=== PATIENT | male | born 1985 | race Caucasian/White ===

== ENCOUNTER 2016-12-23 13:03 | Emergency (ER) | payer MEDICAID ==
[2016-12-23 13:20] VITALS: BP 156/66
[2016-12-23] MEDS ORDERED: Acetaminophen 500 MG Tab PO ONE (13:43)
--- NOTE | 2016-12-23 13:58 | EDM.PDOC ---
ED HPI GENERAL MEDICAL PROBLEM - General Chief Complaint: Lower Extremity Injury/Pain Stated Complaint: FELL AND INJURED RT ANKLE AND RT HAND Time Seen by Provider: 12/23/16 13:25 Source of Information: Reports: Patient History Limitations: Reports: No Limitations - History of Present Illness INITIAL COMMENTS - FREE TEXT/NARRATIVE: Patient presents today with complaints of right ankle pain. Aaron was walking his dog today at 1300, tripped when he stepped in a hole. He reports hearing a pop and having acute pain. He also reports difficulty with weight bearing. Onset: Today, Sudden Location: Reports: Lower Extremity, Right Quality: Reports: Ache, Throbbing Improves with: Reports: None Worsens with: Reports: Movement right ankle Pain Score (Numeric/FACES): 4 - Related Data Allergies Allergy/AdvReac Type Severity Reaction Status Date / Time ibuprofen Allergy Airway Verified 06/21/15 11:27 Tightness latex Allergy Rash Verified 06/21/15 11:27 metoprolol Allergy Hallucinati Verified 12/23/16 13:23 ons mushroom Allergy Rash Verified 06/21/15 11:27 dragon fruit Allergy Hives Uncoded 04/10/16 21:13 Home Meds: Home Meds Albuterol Sulfate [Ventolin Hfa] 18 gm IH ASDIRECTED PRN 05/02/15 [History] Aspirin [Low Dose Aspirin EC] 81 mg PO BEDTIME 05/02/15 [History] Lisinopril [Zestril] 10 mg PO DAILY 05/02/15 [History] amLODIPine [Norvasc] 5 mg PO DAILY 05/02/15 [History] Gabapentin [Gabapentin] 300 mg pe PO TID 11/21/15 [History] FLUoxetine [PROzac] 40 mg PO DAILY 12/23/16 [History] Ranitidine [Zantac] 300 mg PO DAILY 12/23/16 [History] metFORMIN [Glucophage] 500 mg PO BIDMEALS 12/23/16 [History] traZODone 50 mg PO DAILY 12/23/16 [History] Past Medical History Other HEENT History: Bilateral eustachian tubes Cardiovascular History: Reports: Hypertension Respiratory History: Reports: Asthma, Sleep Apnea, SOB Gastrointestinal History: Reports: GERD Musculoskeletal History: Reports: Back Pain, Chronic, Fracture Psychiatric History: Reports: Anxiety, Depression Endocrine/Metabolic History: Reports: Obesity/BMI 30+ Hematologic History: Reports: Iron Deficiency Social & Family History - Family History Endocrine/Metabolic: Reports: Diabetes, type II - Tobacco Use Smoking Status *Q: Never Smoker Second Hand Smoke Exposure: No - Caffeine Use Caffeine Use: Reports: Soda - Recreational Drug Use Recreational Drug Use: No Review of Systems - Review of Systems Review Of Systems: See Below Constitutional: Reports: No Symptoms Respiratory: Denies: Shortness of Breath, Wheezing, Cough, Sputum Cardiovascular: Denies: Chest Pain, Edema, Lightheadedness, Palpitations, Syncope Musculoskeletal: Reports: Other (Right ankle pain, tenderness) Skin: Reports: Other (Abrasion to right palm. ) Neurological: Denies: Confusion, Dizziness, Headache, Numbness, Tingling, Weakness Psychiatric: Reports: No Symptoms ED EXAM, GENERAL - Physical Exam Exam: See Below Free Text/Narrative:: Patient presents today status post fall from stepping in hole with right ankle. Difficulty bearing weight. Exam Limited By: No Limitations General Appearance: Alert, WD/WN Eye Exam: Bilateral Eye: EOMI, PERRL Ears: Normal External Exam, Normal Canal, Hearing Grossly Normal, Normal TMs Ear Exam: Bilateral Ear: Auricle Normal, Canal Normal, TM normal Nose: Normal Inspection, Normal Mucosa, No Blood Throat/Mouth: Normal Inspection, Normal Lips, Normal Teeth, Normal Gums, Normal Oropharynx, Normal Voice, No Airway Compromise Head: Atraumatic, Normocephalic Neck: Normal Inspection, Supple, Non-Tender, Full Range of Motion Respiratory/Chest: No Respiratory Distress, Lungs Clear, Normal Breath Sounds, No Accessory Muscle Use, Chest Non-Tender Cardiovascular: Normal Peripheral Pulses, Regular Rate, Rhythm, No Edema, No Gallop, No Murmur, No Rub Peripheral Pulses: 2+: Radial (L), Radial (R), Dorsalis Pedis (L), Dorsalis Pedis (R) GI/Abdominal: Normal Bowel Sounds, Soft, Non-Tender, No Organomegaly, No Distention, No Abnormal Bruit, No Mass Extremities: Normal Inspection, Normal Range of Motion, Non-Tender, No Pedal Edema, Normal Capillary Refill Neurological: Alert, Oriented, CN II-XII Intact, Normal Cognition, Normal Gait, Normal Reflexes, No Motor/Sensory Deficits Psychiatric: Normal Affect, Normal Mood Skin Exam: Warm, Dry, Other Lymphatic: No Adenopathy Course - Vital Signs Last Recorded V/S: Last Vital Signs Temp 36.7 C 12/23/16 13:19 Pulse 101 H 12/23/16 13:19 Resp 20 12/23/16 13:19 BP 156/66 H 12/23/16 13:19 Pulse Ox 96 12/23/16 13:19 - Orders/Labs/Meds Meds: Medications Discontinued Medications Generic Name Dose Route Start Last Admin Trade Name Oh PRN Reason Stop Dose Admin Acetaminophen 1,000 mg 12/23/16 13:43 12/23/16 13:57 Tylenol Extra Strength PO 12/23/16 13:44 1,000 mg ONETIME ONE Administration Aspirin 325 mg 12/23/16 15:01 Ecotrin PO 12/23/16 15:02 ONETIME ONE Bacitracin 1 dose 12/23/16 15:01 Bacitracin Oint 1 Gm TOP 12/23/16 15:02 ONETIME ONE - Radiology Interpretation Free Text/Narrative:: X-ray reviewed with radiologist. Distal fibula spiral fracture. Dr. Denise Martini notified of patient status. Posterior splint applied. Patient will take Aspirin 325mg PO daily. He will be provided hydrocodone for pain. Follow up with Dr. Martini this . Departure - Departure Time of Disposition: 14:59 Disposition: Home, Self-Care 01 Condition: Fair Clinical Impression: Fracture of distal end of fibula, Fracture of fibula, Morbid obesity - Discharge Information Referrals: Satinder Sadler PA-C [Primary Care Provider] - Forms: ED Department Discharge Additional Instructions: You have a spiral fracture of the right distal fibula bone in your right ankle. It is recommended for you to not bear any weight on your right foot. Use of a scooter or wheelchair are good options. Take an aspirin 325mg PO daily to prevent blood clots. You may take acetaminophen 650 mg PO every 4 to 6 hours for pain. You can take hydrocodone 5/325mg one tablet by mouth every 6 hours for break- through pain (#12 provided). Your pain will be less with no weight bearing. Use of elevating the extremity, rest, ice (on for 20 minutes, off for 20 minutes as frequent as you can) will help your pain. Keep splint on and in place. Follow up with Dr. Denise Martini this . Return to ER or report to clinic for worsening of pain, issues or concerns. - Assessment/Plan Assessment:: Distal spiral fracture of right tibia, non-displaced. Posterior splint applied. Follow up with ortho. Morbid obesity Plan: Recommend no weight bearing of right foot/ankle. Use of a scooter or wheelchair are good options. Take an aspirin 325mg PO daily to prevent blood clots. Take acetaminophen 650 mg PO every 4 to 6 hours for pain. Hydrocodone 5/325mg one tablet by mouth every 6 hours for break-through pain (# 12 provided per written script). Patient advised that pain will be less with no weight bearing. Use of elevating the extremity, rest, ice. Keep splint on and in place. Follow up with Dr. Denise Martini this . Return to ER or report to clinic for worsening of pain, issues or concerns. Patient given acetaminophen, aspirin in ER. Splint length of 2 separate 5 x 66cm due to size of lower leg with segundo wrap. Not able to use cam walker boot.
--- NOTE | 2016-12-23 14:09 | CR ---
Soft tissue swelling. Distal tibia is intact. Slight irregularity at the expected cortex of the dist al fibula on the lateral view only. Cannot exclude a fracture at this location. Consider radiographi c or CT follow-up.
[2016-12-23] MEDS ORDERED: Aspirin 325 MG Tab.EC PO ONE (15:01)
[2016-12-23] MEDS ORDERED: Bacitracin Oint 1 GM U/D Packet TOP ONE (15:01)
== END 2016-12-23 15:20 | disposition home or self-care (01) ==
LOC: JP.ED 13:03
DX: S82.831A Other fracture of upper and lower end of right fibula, initial encounter for closed fracture (principal); I10 Essential (primary) hypertension; J45.909 Unspecified asthma, uncomplicated; G47.30 Sleep apnea, unspecified; F41.9 Anxiety disorder, unspecified; F32.9 Major depressive disorder, single episode, unspecified; E66.01 Morbid (severe) obesity due to excess calories; Z68.45 Body mass index [BMI] 70 or greater, adult; Z79.82 Long term (current) use of aspirin; Z79.899 Other long term (current) drug therapy; Z88.6 Allergy status to analgesic agent; Z88.8 Allergy status to other drugs, medicaments and biological substances; Z91.040 Latex allergy status; Z91.018 Allergy to other foods; W18.42XA Slipping, tripping and stumbling without falling due to stepping into hole or opening, initial encounter; Y93.K1 Activity, walking an animal
CPT/HCPCS: 29515; 73610; 99284; A9270

== ENCOUNTER 2019-02-04 20:52 | Emergency (ER) | payer MEDICAID ==
[2019-02-04 21:08] VITALS: BP 137/88; PULSE 70
[2019-02-04] MEDS ORDERED: Triamcinolone Acetonide 40 MG/ML 1 ML MDV INJECT ONE (22:09)
--- NOTE | 2019-02-04 22:15 | EDM.PDOC ---
ED HPI GENERAL MEDICAL PROBLEM - General Chief Complaint: Skin Complaint Stated Complaint: RASH Time Seen by Provider: 02/04/19 22:10 Source of Information: Reports: Patient History Limitations: Reports: No Limitations - History of Present Illness INITIAL COMMENTS - FREE TEXT/NARRATIVE: pt arrived with a rash on both hands. this is very itch. This does have small vesicles present. He does have some lesions on his cheeks. He has not been in the garden or weeds. He does have a dog. he has been using benadryl and this has not been controlling the itching. Onset: Today, Sudden Duration: Hour(s): Location: Reports: Face Associated Symptoms: Reports: No Other Symptoms - Related Data Allergies Allergy/AdvReac Type Severity Reaction Status Date / Time ibuprofen Allergy Airway Verified 02/04/19 21:11 Tightness latex Allergy Rash Verified 02/04/19 21:11 metoprolol Allergy Hallucinati Verified 02/04/19 21:11 ons mushroom Allergy Rash Verified 02/04/19 21:11 dragon fruit Allergy Hives Uncoded 02/04/19 21:11 Home Meds: Home Meds Albuterol Sulfate [Ventolin Hfa] 18 gm IH ASDIRECTED PRN 05/02/15 [History] Lisinopril [Zestril] 10 mg PO DAILY 05/02/15 [History] FLUoxetine [PROzac] 80 mg PO DAILY 12/23/16 [History] traZODone 75 mg PO BEDTIME PRN 12/23/16 [History] Chromium Amino Acid Chelate [Chromium] 400 mcg PO DAILY 12/26/16 [History] Polyethylene Glycol 3350 [MiraLAX] 17 gram PO DAILY PRN 12/26/16 [History] Albuterol [Ventolin HFA] 2 puff PO Q4H 01/15/18 [History] Omeprazole 40 mg PO DAILY 01/15/18 [History] amLODIPine [Norvasc] 5 mg PO DAILY 01/15/18 [History] Past Medical History HEENT History: Reports: Impaired Vision Other HEENT History: Bilateral eustachian tubes Cardiovascular History: Reports: Hypertension Respiratory History: Reports: Asthma, Sleep Apnea, SOB Gastrointestinal History: Reports: GERD Musculoskeletal History: Reports: Back Pain, Chronic, Fracture, Other (See Below ) Other Musculoskeletal History: R ankle Psychiatric History: Reports: Anxiety, Depression Endocrine/Metabolic History: Reports: Obesity/BMI 30+, Other (See Below) Other Endocrine/Metabolic History: thyroid problems years ago Hematologic History: Reports: Iron Deficiency, Other (See Below) Other Hematologic History: low testosterone - Past Surgical History Head Surgeries/Procedures: Reports: None HEENT Surgical History: Reports: None Cardiovascular Surgical History: Reports: None Respiratory Surgical History: Reports: None GI Surgical History: Reports: None Musculoskeletal Surgical History: Reports: None Dermatological Surgical History: Reports: None Social & Family History - Family History Endocrine/Metabolic: Reports: Diabetes, type II Oncologic: Reports: Lung - Tobacco Use Smoking Status *Q: Never Smoker Second Hand Smoke Exposure: No - Caffeine Use Caffeine Use: Reports: None - Recreational Drug Use Recreational Drug Use: No ED ROS GENERAL - Review of Systems Review Of Systems: See Below Constitutional: Reports: No Symptoms HEENT: Reports: No Symptoms Respiratory: Reports: No Symptoms Cardiovascular: Reports: No Symptoms Endocrine: Reports: No Symptoms GI/Abdominal: Reports: No Symptoms : Reports: No Symptoms Musculoskeletal: Reports: No Symptoms Skin: Reports: Pruritis, Rash, Other (pt has marked itching present. ) Neurological: Reports: No Symptoms ED EXAM, SKIN/RASH Exam: See Below Text/Narrative:: pt arrived with a rash on both hands. This is very itchy and is vesicular. Exam Limited By: No Limitations General Appearance: Alert, Anxious, Moderate Distress Ears: Normal TMs Nose: Normal Inspection Throat/Mouth: Normal Inspection Head: Atraumatic Neck: Normal Inspection Respiratory/Chest: No Respiratory Distress Cardiovascular: Regular Rate, Rhythm GI/Abdominal: Soft, Non-Tender (Male) Exam: Deferred Rectal (Males) Exam: Normal Exam Back Exam: Normal Inspection Extremities: Other ( rash on both hands and on the face) Neurological: Alert, Oriented, Normal Cognition Skin: Rash Location, Skin: Upper Extremity, Right, Upper Extremity, Left Characteristics: Vesicular Course - Vital Signs Last Recorded V/S: Last Vital Signs Temp 35.8 C 02/04/19 21:14 Pulse 70 02/04/19 21:14 Resp 20 02/04/19 21:14 BP 137/88 02/04/19 21:14 Pulse Ox 98 02/04/19 21:14 - Orders/Labs/Meds Orders: Active Orders 24 hr Category Date Time Status Triamcinolone Acetonide [Kenalog-40] Med 02/04/19 22:09 Once 60 mg INJECT ASDIRECTED ONE - Re-Assessments/Exams Free Text/Narrative Re-Assessment/Exam: 02/04/19 22:15 pt was given kenalog 60 mg im and will be given kenalog cream for the hands. Departure - Departure Time of Disposition: 22:16 Disposition: Home, Self-Care 01 Condition: Fair Clinical Impression: Rash - Discharge Information Referrals: PCP,None [Primary Care Provider] - Care Plan Goals: benadryl 50 mg q6h as needed for the itching. Use the amoxicillin for 1 week. kenalog cream .1 % -- apply to the rash tid-- at nite put the cream on and then put rubber gloves over it. - My Orders Last 24 Hours: My Active Orders 02/04/19 22:09 Triamcinolone Acetonide [Kenalog-40] 60 mg INJECT ASDIRECTED ONE - Assessment/Plan Last 24 Hours: My Active Orders 02/04/19 22:09 Triamcinolone Acetonide [Kenalog-40] 60 mg INJECT ASDIRECTED ONE
== END 2019-02-04 22:33 | disposition home or self-care (01) ==
LOC: JP.ED 20:52
DX: R21 Rash and other nonspecific skin eruption (principal); I10 Essential (primary) hypertension; J45.909 Unspecified asthma, uncomplicated; K21.9 Gastro-esophageal reflux disease without esophagitis; F41.9 Anxiety disorder, unspecified; F32.9 Major depressive disorder, single episode, unspecified; E66.9 Obesity, unspecified; Z68.44 Body mass index [BMI] 60.0-69.9, adult; Z88.8 Allergy status to other drugs, medicaments and biological substances; Z91.040 Latex allergy status; Z91.018 Allergy to other foods; Z79.899 Other long term (current) drug therapy
CPT/HCPCS: 96372; 99282; J3301

== ENCOUNTER 2023-10-08 00:39 | Emergency (ER) | payer MEDICAID ==
[2023-10-08 01:10] LABS: BASOPHILS ABSOLUTE AUTO 0.04 K/uL (0.00-0.10); BASOPHILS PERCENT AUTO 0.3 % (0.1-1.3); EOSINOPHILS ABSOLUTE AUTO 0.23 K/uL (0.00-0.40); EOSINOPHILS PERCENT AUTO 1.8 % (0.0-5.4); HEMATOCRIT 41.9 % (38.4-49.7); HEMOGLOBIN 14.3 g/dL (12.9-16.9); IMMATURE GRAN ABSOLUTE AUTO 0.04 K/uL (0.00-0.23); IMMATURE GRAN PERCENT AUTO 0.3 % (0.0-0.7); LYMPHOCYTES PERCENT AUTO 23.7 % (11.4-47.7); MEAN CORPUSCULAR HEMOGLOBIN 26.3 pg (31.6-35.5); MEAN CORPUSCULAR HGB CONC 34.1 g/dL (31.6-35.5); MONOCYTES ABSOLUTE AUTO 1.23 K/uL (0.20-0.90); MONOCYTES PERCENT AUTO 9.4 % (3.3-12.6); NEUTROPHILS ABSOLUTE AUTO 8.44 K/uL (1.0-7.6); NEUTROPHILS PERCENT AUTO 64.5 % (40.0-78.1); PLATELET COUNT,PLT 263 K/uL (130-375); RED BLOOD CELL COUNT 5.44 M/uL (4.14-5.76); WHITE BLOOD CELL COUNT,WBC 13.1 K/uL (3.2-11.0)
[2023-10-08 01:34] LABS: A/G RATIO 0.8 (1.2-2.2); ALANINE AMINOTRANSFERASE,ALT 33 U/L (12-78); ALBUMIN 3.5 g/dL (3.4-5.0); ALKALINE PHOSPHATASE 90 U/L (46-116); ASPARTATE AMNIOTRANSFERASE,AST 32 U/L (15-37); BILIRUBIN TOTAL 0.5 mg/dL (0.2-1.0); BLOOD UREA NITROGEN,BUN 20 mg/dL (7-18); CARBON DIOXIDE,CO2 29 mmol/L (21-32); CHLORIDE,CL 98 mmol/L (100-108); CREATININE 1.1 mg/dL (0.8-1.3); EST CRCL DRUG DOSING (CG) 95.86 mL/min; ESTIMATED GFR 89 mL/min (>60); GLUCOSE RANDOM 118 mg/dL (74-106); POTASSIUM,K 4.2 mmol/L (3.6-5.2); PROTEIN TOTAL,TP 7.8 g/dL (6.4-8.2); SODIUM,NA 135 mmol/L (140-148)
[2023-10-08 01:35] LABS: ANION GAP 12.2 mmol/L (5.0-14.0); TROPONIN I HIGH SENSITIVITY < 4.0 pg/mL (<=60.3)
[2023-10-08 01:42] VITALS: BP 118/79; PULSE 89
== END 2023-10-08 02:21 | disposition home or self-care (01) ==
LOC: JP.ED 00:39
DX: R07.89 Other chest pain (principal); F41.9 Anxiety disorder, unspecified; E66.01 Morbid (severe) obesity due to excess calories; Z68.44 Body mass index [BMI] 60.0-69.9, adult; I10 Essential (primary) hypertension; K21.9 Gastro-esophageal reflux disease without esophagitis; Z88.6 Allergy status to analgesic agent; Z91.040 Latex allergy status; Z91.018 Allergy to other foods; Z88.8 Allergy status to other drugs, medicaments and biological substances; Z79.51 Long term (current) use of inhaled steroids; Z79.899 Other long term (current) drug therapy
CPT/HCPCS: 36415; 80053; 84484; 85025; 93005; 99285

== ENCOUNTER 2024-01-11 20:58 | Emergency (ER) | payer MEDICAID ==
[2024-01-11 22:01] LABS: BASOPHILS ABSOLUTE AUTO 0.03 K/uL (0.00-0.10); BASOPHILS PERCENT AUTO 0.3 % (0.1-1.3); EOSINOPHILS ABSOLUTE AUTO 0.24 K/uL (0.00-0.40); HEMATOCRIT 38.2 % (38.4-49.7); HEMOGLOBIN 13.1 g/dL (12.9-16.9); IMMATURE GRAN ABSOLUTE AUTO 0.04 K/uL (0.00-0.23); IMMATURE GRAN PERCENT AUTO 0.3 % (0.0-0.7); LYMPHOCYTES ABSOLUTE AUTO 2.66 K/uL (0.8-3.3); LYMPHOCYTES PERCENT AUTO 22.6 % (11.4-47.7); MEAN CORPUSCULAR HEMOGLOBIN 27.8 pg (31.6-35.5); MEAN CORPUSCULAR HGB CONC 34.3 g/dL (31.6-35.5); MEAN CORPUSCULAR VOLUME 81.1 fL (81.4-99.0); MONOCYTES ABSOLUTE AUTO 1.09 K/uL (0.20-0.90); MONOCYTES PERCENT AUTO 9.3 % (3.3-12.6); NEUTROPHILS ABSOLUTE AUTO 7.72 K/uL (1.0-7.6); NEUTROPHILS PERCENT AUTO 65.5 % (40.0-78.1); PLATELET COUNT,PLT 247 K/uL (130-375); RED BLOOD CELL COUNT 4.71 M/uL (4.14-5.76); WHITE BLOOD CELL COUNT,WBC 11.8 K/uL (3.2-11.0)
[2024-01-11 22:25] LABS: ALANINE AMINOTRANSFERASE,ALT 23 U/L (12-78); ALBUMIN 3.5 g/dL (3.4-5.0); ALKALINE PHOSPHATASE 79 U/L (46-116); ANION GAP 10.3 mmol/L (5.0-14.0); ASPARTATE AMNIOTRANSFERASE,AST 16 U/L (15-37); BILIRUBIN TOTAL 0.4 mg/dL (0.2-1.0); BLOOD UREA NITROGEN,BUN 26 mg/dL (7-18); CALCIUM 8.5 mg/dL (8.5-10.1); CARBON DIOXIDE,CO2 29 mmol/L (21-32); CHLORIDE,CL 102 mmol/L (100-108); CREATININE 1.6 mg/dL (0.8-1.3); ESTIMATED GFR 57 mL/min (>60); GLUCOSE RANDOM 120 mg/dL (74-106); POTASSIUM,K 4.3 mmol/L (3.6-5.2); PROTEIN TOTAL,TP 7.2 g/dL (6.4-8.2); SODIUM,NA 137 mmol/L (140-148); TROPONIN I HIGH SENSITIVITY < 4.0 pg/mL (<=60.3)
[2024-01-11 23:12] VITALS: BP 109/50; PULSE 75
== END 2024-01-11 23:17 | disposition home or self-care (01) ==
LOC: JP.ED 20:58
DX: I95.9 Hypotension, unspecified (principal); I10 Essential (primary) hypertension; E66.9 Obesity, unspecified; Z91.018 Allergy to other foods; Z91.040 Latex allergy status; Z88.8 Allergy status to other drugs, medicaments and biological substances; Z79.899 Other long term (current) drug therapy; Z68.44 Body mass index [BMI] 60.0-69.9, adult
CPT/HCPCS: 36415; 80053; 83605; 84484; 85025; 93005; 99285

== ENCOUNTER 2024-08-01 09:39 | Emergency (ER) | payer MEDICAID ==
[2024-08-01 09:54] VITALS: BP 150/86; PULSE 75
== END 2024-08-01 11:30 | disposition home or self-care (01) ==
LOC: JP.ED 09:39
DX: S96.912A Strain of unspecified muscle and tendon at ankle and foot level, left foot, initial encounter (principal); I10 Essential (primary) hypertension; J45.909 Unspecified asthma, uncomplicated; E66.9 Obesity, unspecified; Z68.44 Body mass index [BMI] 60.0-69.9, adult; Z98.84 Bariatric surgery status; Z88.6 Allergy status to analgesic agent; Z88.8 Allergy status to other drugs, medicaments and biological substances; Z91.040 Latex allergy status; Z91.018 Allergy to other foods; Z79.51 Long term (current) use of inhaled steroids; Z79.899 Other long term (current) drug therapy; W55.19XA Other contact with horse, initial encounter
CPT/HCPCS: 73630-26-LT; 73630-LT; 99283

== ENCOUNTER 2024-08-22 20:25 | Emergency (ER) | payer MEDICAID ==
[2024-08-22] MEDS ORDERED: Sodium Chloride 0.9% 10 ML Syringe FLUSH PRN (20:54)
[2024-08-22] MEDS: Acetaminophen 500 MG Tab PO ONE (21:06)
[2024-08-22 21:15] LABS: BASOPHILS ABSOLUTE AUTO 0.04 K/uL (0.00-0.10); BASOPHILS PERCENT AUTO 0.5 % (0.1-1.3); EOSINOPHILS ABSOLUTE AUTO 0.21 K/uL (0.00-0.40); EOSINOPHILS PERCENT AUTO 2.5 % (0.0-5.4); HEMATOCRIT 41.7 % (38.4-49.7); HEMOGLOBIN 13.7 g/dL (12.9-16.9); IMMATURE GRAN ABSOLUTE AUTO 0.04 K/uL (0.00-0.23); IMMATURE GRAN PERCENT AUTO 0.5 % (0.0-0.7); LYMPHOCYTES ABSOLUTE AUTO 1.51 K/uL (0.8-3.3); LYMPHOCYTES PERCENT AUTO 17.8 % (11.4-47.7); MEAN CORPUSCULAR HEMOGLOBIN 26.7 pg (31.6-35.5); MEAN CORPUSCULAR HGB CONC 32.9 g/dL (31.6-35.5); MEAN CORPUSCULAR VOLUME 81.3 fL (81.4-99.0); MONOCYTES ABSOLUTE AUTO 0.74 K/uL (0.20-0.90); MONOCYTES PERCENT AUTO 8.7 % (3.3-12.6); NEUTROPHILS ABSOLUTE AUTO 5.95 K/uL (1.0-7.6); PLATELET COUNT,PLT 167 K/uL (130-375); RED BLOOD CELL COUNT 5.13 M/uL (4.14-5.76); WHITE BLOOD CELL COUNT,WBC 8.5 K/uL (3.2-11.0)
[2024-08-22 21:31] LABS: A/G RATIO 0.9 (1.2-2.2); ALANINE AMINOTRANSFERASE,ALT 13 U/L (12-78); ALBUMIN 3.1 g/dL (3.4-5.0); ALKALINE PHOSPHATASE 79 U/L (46-116); ANION GAP 7.9 mmol/L (5.0-14.0); ASPARTATE AMNIOTRANSFERASE,AST 11 U/L (15-37); BILIRUBIN TOTAL 0.4 mg/dL (0.2-1.0); BLOOD UREA NITROGEN,BUN 15 mg/dL (7-18); CALCIUM 8.9 mg/dL (8.5-10.1); CARBON DIOXIDE,CO2 30 mmol/L (21-32); CHLORIDE,CL 105 mmol/L (100-108); CREATININE 1.1 mg/dL (0.8-1.3); EST CRCL DRUG DOSING (CG) 94.94 mL/min; ESTIMATED GFR 89 mL/min (>60); GLUCOSE RANDOM 98 mg/dL (74-106); POTASSIUM,K 3.7 mmol/L (3.6-5.2); PROTEIN TOTAL,TP 6.4 g/dL (6.4-8.2); SODIUM,NA 143 mmol/L (140-148); TROPONIN I HIGH SENSITIVITY 5.2 pg/mL (<=60.3)
[2024-08-22 22:22] VITALS: BP 115/59; PULSE 58
== END 2024-08-22 22:27 | disposition home or self-care (01) ==
LOC: JP.ED 20:25
DX: R07.89 Other chest pain (principal); I10 Essential (primary) hypertension; J45.909 Unspecified asthma, uncomplicated; Z91.040 Latex allergy status; Z91.018 Allergy to other foods; Z88.6 Allergy status to analgesic agent; Z88.8 Allergy status to other drugs, medicaments and biological substances; Z79.51 Long term (current) use of inhaled steroids; Z79.899 Other long term (current) drug therapy
CPT/HCPCS: 36415; 71046; 80053; 84484; 85025; 93005; 99285; A9270; 93010; 99283

== ENCOUNTER 2025-02-25 18:29 | Emergency (ER) | payer MEDICAID ==
[2025-02-25 18:45] VITALS: BP 163/81; PULSE 82
[2025-02-25] MEDS ORDERED: Sodium Chloride 0.9% 10 ML Syringe FLUSH PRN (18:56)
[2025-02-25 19:08] LABS: BASOPHILS ABSOLUTE AUTO 0.06 K/uL (0.00-0.10); BASOPHILS PERCENT AUTO 0.7 % (0.1-1.3); EOSINOPHILS ABSOLUTE AUTO 0.32 K/uL (0.00-0.40); EOSINOPHILS PERCENT AUTO 3.5 % (0.0-5.4); IMMATURE GRAN ABSOLUTE AUTO 0.04 K/uL (0.00-0.23); IMMATURE GRAN PERCENT AUTO 0.4 % (0.0-0.7); LYMPHOCYTES ABSOLUTE AUTO 1.94 K/uL (0.8-3.3); LYMPHOCYTES PERCENT AUTO 21.1 % (11.4-47.7); MONOCYTES ABSOLUTE AUTO 0.65 K/uL (0.20-0.90); MONOCYTES PERCENT AUTO 7.1 % (3.3-12.6); NEUTROPHILS ABSOLUTE AUTO 6.19 K/uL (1.0-7.6); NEUTROPHILS PERCENT AUTO 67.2 % (40.0-78.1); PLATELET COUNT,PLT 211 K/uL (130-375); RED BLOOD CELL COUNT 5.14 M/uL (4.14-5.76); WHITE BLOOD CELL COUNT,WBC 9.2 K/uL (3.2-11.0)
[2025-02-25 19:30] LABS: A/G RATIO 0.9 (1.2-2.2); ALANINE AMINOTRANSFERASE,ALT 21 U/L (12-78); ASPARTATE AMNIOTRANSFERASE,AST 17 U/L (15-37); BILIRUBIN TOTAL 0.4 mg/dL (0.2-1.0); BLOOD UREA NITROGEN,BUN 12 mg/dL (7-18); CARBON DIOXIDE,CO2 29 mmol/L (21-32); CHLORIDE,CL 103 mmol/L (100-108); CREATININE 1.0 mg/dL (0.8-1.3); EST CRCL DRUG DOSING (CG) 103.42 mL/min; ESTIMATED GFR 99 mL/min (>60); GLUCOSE RANDOM 95 mg/dL (74-106); POTASSIUM,K 4.1 mmol/L (3.6-5.2); PROTEIN TOTAL,TP 7.2 g/dL (6.4-8.2); SODIUM,NA 139 mmol/L (140-148)
[2025-02-25] MEDS: Iopamidol 612 MG/ML 100 ML Bottle IV ONE (19:47)
[2025-02-25] MEDS: Sodium Chloride 0.9% 10 ML Syringe FLUSH ONE (19:47)
== END 2025-02-25 20:52 | disposition home or self-care (01) ==
LOC: JP.ED 18:29
DX: K59.04 Chronic idiopathic constipation (principal); I10 Essential (primary) hypertension; J45.909 Unspecified asthma, uncomplicated; K21.9 Gastro-esophageal reflux disease without esophagitis; Z91.040 Latex allergy status; Z91.018 Allergy to other foods; Z88.6 Allergy status to analgesic agent; Z79.899 Other long term (current) drug therapy
CPT/HCPCS: 36415; 74177; 80053; 83605; 83690; 85025; 99284; Q9967

== ENCOUNTER 2025-05-18 18:21 | Emergency (ER) | payer MEDICAID ==
[2025-05-18 19:40] VITALS: BP 154/79; PULSE 77
== END 2025-05-18 20:40 | disposition home or self-care (01) ==
LOC: JP.ED 18:21
DX: L03.116 Cellulitis of left lower limb (principal); I10 Essential (primary) hypertension; E66.9 Obesity, unspecified; Z91.040 Latex allergy status; Z91.018 Allergy to other foods; Z88.8 Allergy status to other drugs, medicaments and biological substances; Z79.899 Other long term (current) drug therapy; Z68.45 Body mass index [BMI] 70 or greater, adult
CPT/HCPCS: 99283

== ENCOUNTER 2025-05-19 21:35 | Emergency (ER) | payer MEDICAID ==
[2025-05-19 22:10] LABS: BASOPHILS ABSOLUTE AUTO 0.04 K/uL (0.00-0.10); BASOPHILS PERCENT AUTO 0.5 % (0.1-1.3); EOSINOPHILS ABSOLUTE AUTO 0.18 K/uL (0.00-0.40); EOSINOPHILS PERCENT AUTO 2.1 % (0.0-5.4); IMMATURE GRAN ABSOLUTE AUTO 0.02 K/uL (0.00-0.23); IMMATURE GRAN PERCENT AUTO 0.2 % (0.0-0.7); LYMPHOCYTES ABSOLUTE AUTO 2.03 K/uL (0.8-3.3); LYMPHOCYTES PERCENT AUTO 23.6 % (11.4-47.7); MONOCYTES ABSOLUTE AUTO 0.77 K/uL (0.20-0.90); MONOCYTES PERCENT AUTO 9.0 % (3.3-12.6); NEUTROPHILS ABSOLUTE AUTO 5.56 K/uL (1.0-7.6); NEUTROPHILS PERCENT AUTO 64.6 % (40.0-78.1); PLATELET COUNT,PLT 222 K/uL (130-375); RED BLOOD CELL COUNT 4.91 M/uL (4.14-5.76); WHITE BLOOD CELL COUNT,WBC 8.6 K/uL (3.2-11.0)
[2025-05-19 22:26] LABS: BLOOD UREA NITROGEN,BUN 12.0 mg/dL (7-18); CARBON DIOXIDE,CO2 30.0 mmol/L (21-32); CHLORIDE,CL 102.0 mmol/L (100-108); CREATININE 1.1 mg/dL (0.8-1.3); EST CRCL DRUG DOSING (CG) 94.02 mL/min; ESTIMATED GFR 88.0 mL/min (>60); GLUCOSE RANDOM 106.0 mg/dL (74-106); POTASSIUM,K 3.4 mmol/L (3.6-5.2); SODIUM,NA 140.0 mmol/L (140-148)
[2025-05-19 23:13] VITALS: BP 143/70; PULSE 68
== END 2025-05-19 23:28 | disposition home or self-care (01) ==
LOC: JP.ED 21:35
DX: M79.672 Pain in left foot (principal); I10 Essential (primary) hypertension; K21.9 Gastro-esophageal reflux disease without esophagitis; E66.9 Obesity, unspecified; J45.909 Unspecified asthma, uncomplicated; Z79.899 Other long term (current) drug therapy; Z88.6 Allergy status to analgesic agent; Z88.8 Allergy status to other drugs, medicaments and biological substances; Z91.040 Latex allergy status; Z91.018 Allergy to other foods; Z68.45 Body mass index [BMI] 70 or greater, adult
CPT/HCPCS: 36415; 80048; 83605; 85025; 96372; 99283; J1171